=== PATIENT | female | born 1980 | race African-American/Black ===

== ENCOUNTER 2018-02-23 12:24 | Emergency (ER) | payer BC, OTHER ==
[2018-02-23 12:32] VITALS: BP 114/80; PULSE 75; TEMP 97.9; BMI 35.4
[2018-02-23] MEDS ORDERED: LACTATED RINGERS SOLUTION 1,000 ML IV STA (13:56)
[2018-02-23 13:58] LABS: HCG,QUALITATIVE URINE Negative; URINE APPEARANCE CLEAR; URINE BILIRUBIN NEGATIVE (<2.0 mg/dL); URINE COLOR YELLOW; URINE GLUCOSE (UA) NEGATIVE (NEGATIVE); URINE KETONE NEGATIVE (NEGATIVE); URINE LEUK ESTERASE NEGATIVE (NEGATIVE); URINE NITRITE NEGATIVE (NEGATIVE); URINE PROTEIN NEGATIVE (NEGATIVE); URINE UROBILINOGEN NEGATIVE mg/dL (0.2-1.0)
--- NOTE | 2018-02-23 14:13 | PDOC ---
History of Present Illness - General Chief Complaint: Back Pain Stated Complaint: BACK PAIN Time Seen by Provider: 02/23/18 13:39 History Source: Patient Exam Limitations: No Limitations - History of Present Illness Initial Comments: 02/23/18 14:08 Patient is a 38F with history of gallstone pancreatitis s/p cholecystectomy (18 years ago) and here today complaining of two weeks of RUQ abdominal pain that radiates to the back. Patient endorses associated nausea and anorexia. Denies fevers, chills. Patient states that she is followed by Dr Teague (GI, in [place]) and was last scoped in September, which was normal. Patient reports that her symptoms seem to be worse with eating. Denies abnormal vaginal bleeding/discharge. Denies dysuria, last bowel movement yesterday. Past History - Past Medical History Allergies/Adverse Reactions: Allergies Allergy/AdvReac Type Severity Reaction Status Date / Time No Known Allergies Allergy Verified 02/23/18 12:31 Home Medications: Ambulatory Orders NK [No Known Home Medication] 02/23/18 COPD: No - Suicide/Smoking/Psychosocial Hx Smoking History: Never smoked Review of Systems - Review of Systems Able to Perform ROS?: Yes Comments:: 02/23/18 14:13 GENERAL/CONSTITUTIONAL: No fever or chills. No weakness. HEAD, EYES, EARS, NOSE AND THROAT: No change in vision. No sore throat. CARDIOVASCULAR: No chest pain or shortness of breath RESPIRATORY: No cough, wheezing, or hemoptysis. GASTROINTESTINAL: +nausea. No vomiting, diarrhea or constipation. GENITOURINARY: No dysuria, frequency, or change in urination. MUSCULOSKELETAL: No joint or muscle swelling or pain. No neck or back pain. SKIN: No rash NEUROLOGIC: No headache, vertigo, loss of consciousness, or change in strength/ sensation. ENDOCRINE: No increased thirst. No abnormal weight change HEMATOLOGIC/LYMPHATIC: No anemia, easy bleeding, or history of blood clots. ALLERGIC/IMMUNOLOGIC: No hives or skin allergy. *Physical Exam - Vital Signs Last Vital Signs Temp Pulse Resp BP Pulse Ox 97.9 F 75 18 114/80 99 02/23/18 12:25 02/23/18 12:25 02/23/18 12:25 02/23/18 12:25 02/23/18 12:25 - Physical Exam Comments: 02/23/18 14:14 GENERAL: Awake, alert, and fully oriented, in no acute distress HEAD: No signs of trauma, normocephalic, atraumatic EYES: PERRLA, EOMI, sclera anicteric, conjunctiva clear ENT: Auricles normal inspection, hearing grossly normal, nares patent, oropharynx clear without exudates. Moist mucosa NECK: Normal ROM, supple, no lymphadenopathy, JVD, or masses LUNGS: No distress, speaks full sentences, clear to auscultation bilaterally HEART: Regular rate and rhythm, normal S1 and S2, no murmurs, rubs or gallops, peripheral pulses normal and equal bilaterally. ABDOMEN: Soft, +RUQ tendreness, no CVA tenderness, normoactive bowel sounds. No guarding, no rebound. No masses EXTREMITIES: Normal inspection, Normal range of motion, no edema. No clubbing or cyanosis. NEUROLOGICAL: Cranial nerves II through XII grossly intact. Normal speech, normal gait, no focal sensorimotor deficits SKIN: Warm, Dry, normal turgor, no rashes or lesions noted. ED Treatment Course - LABORATORY CBC & Chemistry Diagram: 02/23/18 14:12 02/23/18 14:12 - ADDITIONAL ORDERS Additional order review: Laboratory Results 02/23/18 13:43 Urine Color Yellow Urine Appearance Clear Urine pH 5.0 Ur Specific [place] 1.019 Urine Protein Negative Urine Glucose (UA) Negative Urine Ketones Negative Urine Blood Negative Urine Nitrite Negative Urine Bilirubin Negative Urine Urobilinogen Negative Ur Leukocyte Esterase Negative Urine HCG, Qual Negative - RADIOLOGY Radiology Studies Ordered: Category Date Time Status ABDOMEN & PELVIS CT WITH CONTR [CT] Stat CT Scan 02/23/18 14:03 Ordered Medical Decision Making - Medical Decision Making 02/23/18 14:15 Patient is 38F with history of and gallstone pancreatitis s/p cholecystectomy here today with RUQ pain. Vital signs normal and stable. PE shows RUQ tenderness. DDx includes, but is not limited to: gastritis, pancreatitis, pyelonephritis, stone in bile duct, appendicitis. Will evaluate with cbc, cmp, lipase, ua, upreg, ct abd/pelvis. Will treat with fluids, patient denies needing pain/nausea medication at this time. UA neg, urine preg normal. 02/23/18 19:40 CBC normal. CMP normal. Lipase negative. CT shows no acute findings, does show uterine fibroids. Will discharge patient with GI follow up. Patient still is not requiring pain medication. Ambulating and taking PO without difficulty. *DC/Admit/Observation/Transfer Diagnosis at time of Disposition: Abdominal pain - Discharge Dispostion Disposition: HOME Condition at time of disposition: Good Decision to Admit order: No - Referrals - Patient Instructions Printed Discharge Instructions: DI for Abdominal Pain-Adult Additional Instructions: Please follow up with your GI doctor. Please return if you have any new, worsening or concerning symptoms, especially fever, vomiting and worsening pain. - Post Discharge Activity
[2018-02-23 14:34] LABS: BASO % 0.7 % (0-2.0); HEMATOCRIT 37.1 % (32.4-45.2); LYMPH % 24.9 % (8-40); MCH 22.8 pg (25.7-33.7); MCHC 32.4 g/dl (32.0-36.0); MEAN CELL VOLUME 70.3 fl (80-96); MEAN PLT VOLUME 7.5 fl (7.5-11.1); NEUT % 65.4 % (42.8-82.8); PLATELET COUNT 276 K/MM3 (134-434); RBC 5.28 M/mm3 (3.60-5.2); WHITE BLOOD COUNT 9.8 K/mm3 (4.0-10.0)
[2018-02-23 15:07] LABS: ALK PHOS 61 U/L (45-117); ANION GAP 6 MMOL/L (8-16); BILIRUBIN,TOTAL 0.5 mg/dL (0.2-1); BLOOD UREA NITROGEN 8 mg/dL (7-18); CALCIUM 8.9 mg/dL (8.5-10.1); CHLORIDE 108 mmol/L (98-107); CO2 27 mmol/L (21-32); CREATININE 0.8 mg/dL (0.55-1.3); GLUCOSE,RANDOM 82 mg/dL (74-106); LIPASE 200 U/L (73-393); POTASSIUM 3.9 mmol/L (3.5-5.1); SGOT/AST 12 U/L (15-37); SGPT/ALT 16 U/L (13-61); SODIUM 141 mmol/L (136-145); TOT PROT 7.6 g/dl (6.4-8.2)
--- NOTE | 2018-02-23 16:26 | PDOC ---
Attending Attestation - Resident Resident Name: Yakov Martinez - ED Attending Attestation I have performed the following: I have examined & evaluated the patient, The case was reviewed & discussed with the resident, I agree w/resident's findings & plan, Exceptions are as noted - HPI HPI: 02/23/18 16:24 38 yo F wit h/oprior cholecystectomy here today c/o ruq pain. it started 2 weeks ago. describes nausea, anorexia no vomting. no f/c no change to urine, no dysuria no hematuria. was seen today at urgent care, sent for imaging. no cough no sob no cp. no other complaints. - Physicial Exam PE: 02/23/18 16:25 awake alert lungs clear bilaterally heart rrr no mrg. abd soft ruq ttp. nd. ext wwp no edema. no calf tenderness. skin warm and dry alert oriented x 3 - Medical Decision Making 02/23/18 16:26 differential : retrocecal appendicitis, , related pain, gastritis, pyelonephritis. uti, plan ua ucg ct a/p labs. reassess. pepcid and maalox.
== END 2018-02-23 20:02 | disposition home or self-care (01) ==
LOC: JER 12:24
PROC: 3E0337Z Introduction of Electrolytic and Water Balance Substance into Peripheral Vein, Percutaneous Approach (ICD-10-PCS; principal; 2018-02-23)
DX: R10.9 Unspecified abdominal pain (principal); Z87.19 Personal history of other diseases of the digestive system
CPT/HCPCS: 36415; 74177-TC; 80053; 81003; 83690; 84703; 85025; 99283-25

== ENCOUNTER 2018-03-01 04:46 | Emergency (ER) | payer BC ==
[2018-03-01 05:04] VITALS: TEMP 99.5; BMI 35.4
--- NOTE | 2018-03-01 05:33 | PDOC ---
History of Present Illness <Lizett Leonardo - Last Filed: 03/01/18 05:39> - History of Present Illness Initial Comments: 38yo F with pancreatitis presenting with chest pain. The pain started last night , rated 5-6/10, and woke her up from bed. Pain has been constant since that time with no exacerbating or relieving factors. Described as a tightness and cramping sensation that radiates up her neck and to her left shoulder. She has not taken anything at home for her pain. For the past three or four days, patient endorses dyspnea on exertion, weakness, and nausea, but no vomiting. Was last seen in this ED last week for abdominal pain. Denies history of previous AR, HTN, or DM. No family history of CAD/AR. No fever, chills, recent weight changes, or abdominal pain. <Stefanie Padilla - Last Filed: 03/01/18 07:36> - General Chief Complaint: Chest Pain Stated Complaint: CHEST TIGHTNESS/PRESSURE Time Seen by Provider: 03/01/18 05:07 Past History <Lizett Leonardo - Last Filed: 03/01/18 05:39> - Past Medical History COPD: No - Suicide/Smoking/Psychosocial Hx Smoking History: Never smoked Have you smoked in the past 12 months: No Information on smoking cessation initiated: No Hx Alcohol Use: No Drug/Substance Use Hx: No <Stefanie Padilla - Last Filed: 03/01/18 07:36> - Past Medical History Allergies/Adverse Reactions: Allergies Allergy/AdvReac Type Severity Reaction Status Date / Time No Known Allergies Allergy Verified 03/01/18 04:53 Home Medications: Ambulatory Orders NK [No Known Home Medication] 02/23/18 Review of Systems - Review of Systems Comments:: Constitutional: no fever, no chills Cardiovascular: +chest pain, +palpitations Respiratory: no cough, no shortness of breath Gastrointestinal: no abdominal pain, no nausea, no vomiting, no diarrhea, no constipation Musculoskeletal: no myalgia, no arthralgia Skin: no rash, no itching Neurologic: no headache, no dizziness <Stefanie Padilla - Last Filed: 03/01/18 07:36> *Physical Exam - Vital Signs Last Vital Signs Temp Pulse Resp BP Pulse Ox 99.5 F 77 19 139/94 100 03/01/18 04:50 03/01/18 04:50 03/01/18 04:50 03/01/18 04:50 03/01/18 04:50 <Lizett Leonardo - Last Filed: 03/01/18 05:39> - Vital Signs Last Vital Signs Temp Pulse Resp BP Pulse Ox 99.5 F 77 19 139/94 100 03/01/18 04:50 03/01/18 04:50 03/01/18 04:50 03/01/18 04:50 03/01/18 04:50 - Physical Exam Comments: General: Awake, alert, and fully oriented, in no acute distress Head: no signs of trauma Eyes: EOMI, sclera anicteric ENT: Moist mucus membranes, Neck: Normal ROM, supple Lungs: Lungs clear, Normal breath sounds Cardio: Regular rhythm, S1 and S2 present Abdomen: Soft, nontender. No guarding, no rebound, no masses Extremities: Normal range of motion, Distal pulses present SKIN: Warm, Dry, normal turgor Neurologic: Cranial nerves II through XII grossly intact. Normal speech <Stefanie Padilla - Last Filed: 03/01/18 07:36> ED Treatment Course - LABORATORY CBC & Chemistry Diagram: 03/01/18 05:40 03/01/18 05:40 - RADIOLOGY Radiology Studies Ordered: Category Date Time Status CHEST PA & LAT [RAD] Stat Radiology 03/01/18 05:28 Ordered <Stefanie Padilla - Last Filed: 03/01/18 07:36> Medical Decision Making - Medical Decision Making 38yo F with pancreatitis presenting with chest pain. -Labs: Tpn negative, no leukocytosis or anemia -HEART score of 2 (moderately suspicious history and 1 risk factor- obesity) -IV fluids, pepcid, maalox Patient signed out to Dr. Gramajo 03/01/18 06:43 <Stefanie Padilla - Last Filed: 03/01/18 07:36> *DC/Admit/Observation/Transfer <Lizett Leonardo - Last Filed: 03/01/18 05:39> <Stefanie Padilla - Last Filed: 03/01/18 07:36> Diagnosis at time of Disposition: Chest pain Qualifiers: Chest pain type: unspecified Qualified Code(s): R07.9 - Chest pain, unspecified - Discharge Dispostion Condition at time of disposition: Fair - Referrals Referrals: Zach Flower MD [Staff Physician] - - Patient Instructions Additional Instructions: We are referring you to a primary care physician, Dr. Flower, at the [facility].
[2018-03-01 06:07] LABS: BASO % 0.2 % (0-2.0); EOS % 1.8 % (0-4.5); HEMATOCRIT 36.8 % (32.4-45.2); HEMOGLOBIN 11.8 GM/dL (10.7-15.3); LYMPH % 26.6 % (8-40); MCH 22.4 pg (25.7-33.7); MEAN CELL VOLUME 70.2 fl (80-96); MEAN PLT VOLUME 7.9 fl (7.5-11.1); MONO % 5.9 % (3.8-10.2); NEUT % 65.5 % (42.8-82.8); PLATELET COUNT 313 K/MM3 (134-434); RBC 5.24 M/mm3 (3.60-5.2); WHITE BLOOD COUNT 8.9 K/mm3 (4.0-10.0)
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
[2018-03-01 06:25] LABS: ALBUMIN 4.1 g/dl (3.4-5.0); ALK PHOS 62 U/L (45-117); ANION GAP 10 MMOL/L (8-16); BILIRUBIN,TOTAL 0.3 mg/dL (0.2-1); BLOOD UREA NITROGEN 9 mg/dL (7-18); CALCIUM 9.2 mg/dL (8.5-10.1); CHLORIDE 109 mmol/L (98-107); CO2 25 mmol/L (21-32); CREATININE 0.7 mg/dL (0.55-1.3); GLUCOSE,RANDOM 87 mg/dL (74-106); POTASSIUM 3.9 mmol/L (3.5-5.1); SGOT/AST 7 U/L (15-37); SGPT/ALT 16 U/L (13-61); SODIUM 144 mmol/L (136-145); TOT PROT 7.5 g/dl (6.4-8.2)
[2018-03-01] MEDS ORDERED: MAG HYDROX/AL HYDROX/SIMETH 30 ML UNIT-DOSE CUP PO ONE (06:40)
[2018-03-01] MEDS ORDERED: SODIUM CHLORIDE 1,000 ML IV STA (06:41)
[2018-03-01] MEDS ORDERED: MAG HYDROX/AL HYDROX/SIMETH 30 ML UNIT-DOSE CUP ONE (06:44)
[2018-03-01] MEDS ORDERED: FAMOTIDINE 20 MG/50 ML IVPB 20 MG/50 ML MG IVPB ONE ×2 (06:44→06:51)
--- NOTE | 2018-03-01 07:52 | PDOC ---
*Physical Exam - Vital Signs Last Vital Signs Temp Pulse Resp BP Pulse Ox 99.5 F 77 19 139/94 100 03/01/18 04:50 03/01/18 04:50 03/01/18 04:50 03/01/18 04:50 03/01/18 04:50 <Cuauhtemoc Gramajo - Last Filed: 03/01/18 08:20> - Vital Signs Last Vital Signs Temp Pulse Resp BP Pulse Ox 99.5 F 82 18 129/87 97 03/01/18 04:50 03/01/18 08:19 03/01/18 08:19 03/01/18 08:19 03/01/18 08:19 <WalkerTheresa - Last Filed: 03/01/18 08:22> ED Treatment Course - LABORATORY CBC & Chemistry Diagram: 03/01/18 05:40 03/01/18 05:40 - ADDITIONAL ORDERS Additional order review: Laboratory Results 03/01/18 05:40 Sodium 144 Potassium 3.9 Chloride 109 H Carbon Dioxide 25 Anion Gap 10 BUN 9 Creatinine 0.7 Creat Clearance w eGFR > 60 Random Glucose 87 Calcium 9.2 Total Bilirubin 0.3 AST 7 L ALT 16 Alkaline Phosphatase 62 Creatine Kinase 57 Troponin I < 0.02 Total Protein 7.5 Albumin 4.1 03/01/18 05:40 RBC 5.24 H MCV 70.2 L MCHC 32.0 RDW 15.0 MPV 7.9 Neutrophils % 65.5 Lymphocytes % 26.6 Monocytes % 5.9 Eosinophils % 1.8 Basophils % 0.2 - Medications Given in the ED: ED Medications Discontinued Medications Generic Name Dose Route Start Last Admin Trade Name Bob PRN Reason Stop Dose Admin Al Hydroxide/Mg Hydroxide 30 ml 03/01/18 06:40 03/01/18 06:49 Mylanta Oral Suspension - PO 03/01/18 06:41 30 ml ONCE ONE Administration Sodium Chloride 1,000 mls @ 1,000 mls/hr 03/01/18 06:41 03/01/18 06:49 Normal Saline - IV 03/01/18 07:40 1,000 mls/hr ASDIR STA Administration Famotidine/Sodium Chloride 20 mg in 50 mls @ 100 mls/hr 03/01/18 06:44 06:54 Pepcid 20 Mg Premixed Ivpb - IVPB 03/01/18 07:13 100 mls/hr ONCE ONE Administration <Cuauhtemoc Gramajo - Last Filed: 03/01/18 08:20> - LABORATORY CBC & Chemistry Diagram: 03/01/18 05:40 03/01/18 05:40 - ADDITIONAL ORDERS Additional order review: Laboratory Results 03/01/18 05:40 Sodium 144 Potassium 3.9 Chloride 109 H Carbon Dioxide 25 Anion Gap 10 BUN 9 Creatinine 0.7 Creat Clearance w eGFR > 60 Random Glucose 87 Calcium 9.2 Total Bilirubin 0.3 AST 7 L ALT 16 Alkaline Phosphatase 62 Creatine Kinase 57 Troponin I < 0.02 Total Protein 7.5 Albumin 4.1 03/01/18 05:40 RBC 5.24 H MCV 70.2 L MCHC 32.0 RDW 15.0 MPV 7.9 Neutrophils % 65.5 Lymphocytes % 26.6 Monocytes % 5.9 Eosinophils % 1.8 Basophils % 0.2 - Medications Given in the ED: ED Medications Discontinued Medications Generic Name Dose Route Start Last Admin Trade Name Bob PRN Reason Stop Dose Admin Al Hydroxide/Mg Hydroxide 30 ml 03/01/18 06:40 03/01/18 06:49 Mylanta Oral Suspension - PO 03/01/18 06:41 30 ml ONCE ONE Administration Sodium Chloride 1,000 mls @ 1,000 mls/hr 03/01/18 06:41 03/01/18 06:49 Normal Saline - IV 03/01/18 07:40 1,000 mls/hr ASDIR STA Administration Famotidine/Sodium Chloride 20 mg in 50 mls @ 100 mls/hr 03/01/18 06:44 06:54 Pepcid 20 Mg Premixed Ivpb - IVPB 03/01/18 07:13 100 mls/hr ONCE ONE Administration <Theresa Walker - Last Filed: 03/01/18 08:22> Medical Decision Making - Medical Decision Making 03/01/18 07:46 Pt feels better at this time after pepcid and maalox. Awaiting CXR at this time. 03/01/18 08:11 CXR with no signs of acute pulmonary process. Pt still feels well. Will discharge home. Pt to follow up at [facility] clinic for primary care and referral given. Pt instructed to come back to ER if she has worsening of current symptoms or new concerning symptoms. <Cuauhtemoc Gramajo - Last Filed: 03/01/18 08:20> - Medical Decision Making agree with outline s/o from Dr Leonardo overnight pending reeval VS remain stable, wnl, normotensive.well appearing. given GI cocktail labs and lytes wnl. trop neg, EKG nonischemic DC in stable condition, PMD followup, return precautions given. pt made aware of impression and plan. 03/01/18 08:21 <Theresa Walker - Last Filed: 03/01/18 08:22> *DC/Admit/Observation/Transfer <Duke Gramajotik - Last Filed: 03/01/18 08:20> <Theresa Walker - Last Filed: 03/01/18 08:22> Diagnosis at time of Disposition: Chest pain Qualifiers: Chest pain type: unspecified Qualified Code(s): R07.9 - Chest pain, unspecified - Discharge Dispostion Disposition: HOME Condition at time of disposition: Fair - Referrals Referrals: Zach Flower MD [Staff Physician] - - Patient Instructions Printed Discharge Instructions: DI for Atypical Chest Pain, DI for Chest Pain Additional Instructions: We are referring you to a primary care physician, Dr. Flower, at the [facility]. - Post Discharge Activity Forms/Work/School Notes: Back to Work
[2018-03-01 08:20] VITALS: BP 129/87; PULSE 82
--- NOTE | 2018-03-01 23:15 | EKG ---
Test Reason : Blood Pressure : / mmHG Vent. Rate : 066 BPM Atrial Rate : 066 BPM P-R Int : 176 ms QRS Dur : 084 ms QT Int : 404 ms P-R-T Axes : 061 055 058 degrees QTc Int : 423 ms NORMAL SINUS RHYTHM SEPTAL INFARCT (CITED ON OR BEFORE 18-MAY-2009) ABNORMAL ECG WHEN COMPARED WITH ECG OF 18-MAY-2009 15:26, VENT. RATE HAS DECREASED BY 43 BPM Confirmed by JOSE ENRIQUE BENNETT MD ([id number]) on 03/01/2018 11:14:33 PM Referred By: Confirmed By:JOSE ENRIQUE BENNETT MD
== END 2018-03-01 08:29 | disposition home or self-care (01) ==
LOC: JER 04:46
PROC: 3E0337Z Introduction of Electrolytic and Water Balance Substance into Peripheral Vein, Percutaneous Approach (ICD-10-PCS; principal; 2018-03-01)
PROC: 3E033GC Introduction of Other Therapeutic Substance into Peripheral Vein, Percutaneous Approach (ICD-10-PCS; 2018-03-01)
DX: R07.9 Chest pain, unspecified (principal)
CPT/HCPCS: 36415; 71046-TC-FY; 80053; 82550; 84484; 84703; 85025; 93005; 93010; 99283-25; J7030

== ENCOUNTER 2019-01-14 23:09 | Emergency (ER) | payer BC ==
[2019-01-14 23:56] VITALS: BP 107/73; PULSE 86; TEMP 97.5; BMI 35.5
--- NOTE | 2019-01-15 01:58 | PDOC ---
Attending Attestation - Resident Resident Name: Mariah Corrales - ED Attending Attestation I have performed the following: I have examined & evaluated the patient, The case was reviewed & discussed with the resident, I agree w/resident's findings & plan - HPI HPI: 01/15/19 06:30 38-year-old female with palpitations and dyspnea intermittently since Saturday. She had some pinching in the left arm which prompted her to come to the emergency department. - Physicial Exam PE: 01/15/19 06:30 agree with resident exam - Medical Decision Making 01/15/19 06:31 38-year-old female with intermittent palpitations and dyspnea Labs were within normal limits Patient's PERC score is negative CXR neg Patient asymptomatic, she will be discharged home with recommended outpatient cardiology follow-up
[2019-01-15] MEDS ORDERED: ACETAMINOPHEN 500 MG TABLET (FP) PO ONE (02:10)
--- NOTE | 2019-01-15 02:15 | PDOC ---
History of Present Illness - General Chief Complaint: Irregular Heart Beat Stated Complaint: PALPITATIONS Time Seen by Provider: 01/15/19 01:47 History Source: Patient Exam Limitations: No Limitations - History of Present Illness Initial Comments: 01/15/19 06:14 38yo F with PMH of pancreatitis presenting to ED with complaints of palpitations with SOB since Saturday. Pt states that today she started to experience soreness in the L arm and pinching like sensation in the L side of the chest which prompted her to come to the ED. Patient says she was talking on the phone with her sister when the palpitations first started. She denies the conversation causing anxiety or excitement. The palpitations are intermittent and is associated with SOB. She is also endorsing epigastric abdominal discomfort which is sharp and "pinches" and radiates to the back which is not a new sensation for her. Denies n/v/d, fevers, chills, recent travel, leg swelling , calf pain, recent surgery, cough. PMD: PMH: see hpi PSH: , cholecystecomy Meds: none Allergies: nkda Past History - Past Medical History Allergies/Adverse Reactions: Allergies Allergy/AdvReac Type Severity Reaction Status Date / Time No Known Allergies Allergy Verified 03/01/18 04:53 Home Medications: Ambulatory Orders NK [No Known Home Medication] 02/23/18 COPD: No - Immunization History Immunization Up to Date: Yes - Suicide/Smoking/Psychosocial Hx Smoking History: Never smoked Have you smoked in the past 12 months: No Information on smoking cessation initiated: No Hx Alcohol Use: No Drug/Substance Use Hx: No Review of Systems - Review of Systems Constitutional: No: Symptoms Reported HEENTM: No: Symptoms Reported Respiratory: Yes: See HPI Cardiac (ROS): Yes: See HPI ABD/GI: Yes: See HPI : No: Symptoms Reported Musculoskeletal: Yes: See HPI Integumentary: No: Symptoms Reported Neurological: No: Symptoms reported *Physical Exam - Vital Signs Last Vital Signs Temp Pulse Resp BP Pulse Ox 97.5 F L 86 20 107/73 100 01/14/19 23:54 01/14/19 23:54 01/14/19 23:54 01/14/19 23:54 01/14/19 23:54 - Physical Exam General Appearance: Yes: Nourished, Appropriately Dressed. No: Apparent Distress HEENT: positive: EOMI, KURTIS, Normal ENT Inspection Neck: positive: Trachea midline, Supple Respiratory/Chest: positive: Lungs Clear, Normal Breath Sounds. negative: Crackles, Rales, Rhonchi, Stridor, Wheezing Cardiovascular: positive: Regular Rhythm, Regular Rate, S1, S2. negative: Edema , JVD, Murmur Vascular Pulses: Dorsalis-Pedis (R): 2+, Doralis-Pedis (L): 2+ Gastrointestinal/Abdominal: positive: Normal Bowel Sounds, Soft. negative: Tender, Distended, Guarding, Rebound, Tenderness Musculoskeletal: negative: CVA Tenderness Extremity: positive: Normal Capillary Refill. negative: Swelling, Calf Tenderness, Erythema Integumentary: positive: Normal Color, Dry, Warm Neurologic: positive: educational therapist II-XII NML intact, Fully Oriented, Alert, Normal Mood/ Affect, Normal Response, Motor Strength 10/05 ED Treatment Course - LABORATORY CBC & Chemistry Diagram: 01/15/19 04:00 01/15/19 04:00 Medical Decision Making - Medical Decision Making 01/15/19 06:41 38yo F with PMH of pancreatitis presenting to ED with complaints of palpitations with SOB since Saturday. Pt states that today she started to experience soreness in the L arm and pinching like sensation in the L side of the chest which prompted her to come to the ED. Patient says she was talking on the phone with her sister when the palpitations first started. She denies the conversation causing anxiety or excitement. The palpitations are intermittent and is associated with SOB. She is also endorsing epigastric abdominal discomfort which is sharp and "pinches" and radiates to the back which is not a new sensation for her. Denies n/v/d, fevers, chills, recent travel, leg swelling , calf pain, recent surgery, cough. Vitals: wnl PE: benign, no chest wall tenderness. ddx includes but not limited to gerd, pancreatitis, pe, acs, pna, ptx PERC negative. will give tylenol, zantac, maalox. labs, cxr ekg pt is asymptomatic at this time. will observe. 01/15/19 06:42 ekg: nsr at 68bpm, pr 184, qtc 418. no alina or depressions. no s1, q3,t3. cxr: no acute pathology. trop negative. stable vitals. safe for dc home. will give cardiology f/u. given return precautions. *DC/Admit/Observation/Transfer Diagnosis at time of Disposition: Palpitations - Discharge Dispostion Disposition: HOME Condition at time of disposition: Good Decision to Admit order: No - Referrals Referrals: Amy Osuna MD [Staff Physician] - [facility] [place] [Provider Group] - Patient Instructions Printed Discharge Instructions: DI for Palpitations Additional Instructions: You were seen in the emergency room today for palpitations. Your blood work, ekg and xray are all normal. I do not know the exact cause of your palpitations but everything appears normal. I recommend making an appointment with a bone puller regarding the palpitations. Information is provided below. I also recommend making an appointment with a primary care doctor. Please come back to the emergency room if you have continuous palpitations, have shortness of breath, have chest pain, you pass out or if any new concerning symptom develops. Thank you - Post Discharge Activity
[2019-01-15] MEDS ORDERED: MAG HYDROX/AL HYDROX/SIMETH 30 ML UNIT-DOSE CUP PO ONE (02:16)
[2019-01-15] MEDS ORDERED: RANITIDINE HCL 150 MG TABLET (FP) PO ONE (02:16)
[2019-01-15] MEDS ORDERED: RANITIDINE HCL 150 MG TABLET (FP) ONE (03:25)
[2019-01-15] MEDS ORDERED: ACETAMINOPHEN 325 MG TABLET (FP) ONE (03:25)
[2019-01-15] MEDS ORDERED: MAG HYDROX/AL HYDROX/SIMETH 30 ML UNIT-DOSE CUP ONE (03:26)
[2019-01-15 05:29] LABS: BASO % 0.3 % (0-2.0); EOS % 1.5 % (0-4.5); HEMATOCRIT 34.9 % (32.4-45.2); HEMOGLOBIN 11.3 GM/dL (10.7-15.3); LYMPH % 34.6 % (8-40); MCH 22.9 pg (25.7-33.7); MCHC 32.4 g/dl (32.0-36.0); MEAN CELL VOLUME 70.8 fl (80-96); MEAN PLT VOLUME 7.4 fl (7.5-11.1); MONO % 6.2 % (3.8-10.2); NEUT % 57.4 % (42.8-82.8); PLATELET COUNT 303 K/MM3 (134-434); RBC 4.92 M/mm3 (3.60-5.2); RDW 15.3 % (11.6-15.6); WHITE BLOOD COUNT 10.2 K/mm3 (4.0-10.0)
[2019-01-15 05:39] LABS: ALBUMIN 3.8 g/dl (3.4-5.0); ANION GAP 9 MMOL/L (8-16); BLOOD UREA NITROGEN 12.2 mg/dL (7-18); CHLORIDE 109 mmol/L (98-107); CO2 27 mmol/L (21-32); GLUCOSE,RANDOM 99 mg/dL (74-106); SODIUM 145 mmol/L (136-145)
[2019-01-15 05:42] LABS: BILIRUBIN,TOTAL 0.2 mg/dL (0.2-1); CREATININE 0.8 mg/dL (0.55-1.3); LIPASE 306 U/L (73-393); SGOT/AST 7 U/L (15-37); SGPT/ALT 15 U/L (13-61); TOT PROT 6.7 g/dl (6.4-8.2)
[2019-01-15 05:51] LABS: ALK PHOS 63 U/L (45-117)
--- NOTE | 2019-01-15 10:55 | EKG ---
Test Reason : Blood Pressure : / mmHG Vent. Rate : 068 BPM Atrial Rate : 068 BPM P-R Int : 184 ms QRS Dur : 076 ms QT Int : 394 ms P-R-T Axes : 068 031 035 degrees QTc Int : 418 ms NORMAL SINUS RHYTHM SEPTAL INFARCT (CITED ON OR BEFORE 18-MAY-2009) ABNORMAL ECG Confirmed by LEONELA FARNSWORTH MD ([id number]) on 01/15/2019 10:55:27 AM Referred By: Chase HERNANDEZ Confirmed By:LEONELA FARNSWORTH MD
== END 2019-01-15 07:18 | disposition home or self-care (01) ==
LOC: JER 23:09
DX: R00.2 Palpitations (principal)
CPT/HCPCS: 36415; 71046-TC-FY; 80053; 83690; 84443; 84484; 84703; 85025; 93005; 93010; 99282-25

== ENCOUNTER 2021-03-11 17:34 | Emergency (ER) | payer SELFPAY ==
[2021-03-11 17:55] VITALS: BP 157/91; PULSE 85; TEMP 98.4; BMI 39.4
[2021-03-11] MEDS ORDERED: ACETAMINOPHEN 1000 MG/100 ML VIAL (NON FORMULARY) IVPB ONE (19:53)
[2021-03-11] MEDS ORDERED: SODIUM CHLORIDE 0.9% 500 ML INFUS.BAG IV ONE (19:53)
[2021-03-11] MEDS ORDERED: METOCLOPRAMIDE HCL INJECTION 10 MG/2 ML VIAL IVPUSH ONE (19:59)
[2021-03-11] MEDS ORDERED: MAG HYDROX/AL HYDROX/SIMETH 30 ML UNIT-DOSE CUP PO ONE (20:00)
[2021-03-11] MEDS ORDERED: FAMOTIDINE 20 MG/50 ML IVPB 20 MG/50 ML MG IVPB ONE ×2 (20:00→20:28)
[2021-03-11] MEDS ORDERED: METOCLOPRAMIDE HCL 10 MG TABLET (FP) PO ONE (20:27)
[2021-03-11] MEDS ORDERED: ACETAMINOPHEN INJECTION 100 ML IVPB ONE (20:27)
[2021-03-11] MEDS ORDERED: MAG HYDROX/AL HYDROX/SIMETH 30 ML UNIT-DOSE CUP ONE (20:28)
[2021-03-11] MEDS ORDERED: METOCLOPRAMIDE HCL INJECTION 10 MG/2 ML VIAL ONE (20:39)
[2021-03-11 20:41] LABS: BASO % 0.8 % (0-2.0); EOS % 1.2 % (0-4.5); HEMOGLOBIN 11.3 GM/dL (10.7-15.3); LYMPH % 26.6 % (8-40); MCH 22.7 pg (25.7-33.7); MCHC 32.3 g/dl (32.0-36.0); MEAN CELL VOLUME 70.1 fl (80-96); MEAN PLT VOLUME 7.2 fl (7.5-11.1); NEUT % 64.4 % (42.8-82.8); PLATELET COUNT 299 10^3/uL (134-434); RBC 4.99 M/mm3 (3.60-5.2); RDW 15.8 % (11.6-15.6); WHITE BLOOD COUNT 13.9 K/mm3 (4.0-10.0)
[2021-03-11 21:02] LABS: CHLORIDE 106 mmol/L (98-107); SODIUM 140 mmol/L (136-145)
[2021-03-11 21:05] LABS: ALBUMIN 3.7 g/dl (3.4-5.0); ANION GAP 8 MMOL/L (8-16); CALCIUM 8.7 mg/dL (8.5-10.1); CO2 25 mmol/L (21-32); LIPASE 200 U/L (73-393)
[2021-03-11 21:08] LABS: CREATININE 0.7 mg/dL (0.55-1.3); GLUCOSE,RANDOM 106 mg/dL (74-106); SGOT/AST 10 U/L (15-37); SGPT/ALT 17 U/L (13-61)
[2021-03-11 21:10] LABS: BILIRUBIN,TOTAL 0.2 mg/dL (0.2-1); TOT PROT 7.2 g/dl (6.4-8.2)
[2021-03-11 21:11] LABS: ALK PHOS 64 U/L (45-117)
== END 2021-03-12 00:42 | disposition home or self-care (01) ==
LOC: JER 17:34
PROC: 3E0333Z Introduction of Anti-inflammatory into Peripheral Vein, Percutaneous Approach (ICD-10-PCS; principal; 2021-03-11)
PROC: 3E033GC Introduction of Other Therapeutic Substance into Peripheral Vein, Percutaneous Approach (ICD-10-PCS; 2021-03-11)
PROC: 3E033GC Introduction of Other Therapeutic Substance into Peripheral Vein, Percutaneous Approach (ICD-10-PCS; 2021-03-11)
DX: G43.909 Migraine, unspecified, not intractable, without status migrainosus (principal); K21.9 Gastro-esophageal reflux disease without esophagitis; I10 Essential (primary) hypertension
CPT/HCPCS: 36415; 70450-TC; 70496-TC; 80053; 82550; 83690; 84484; 85025; 93005; 93010; 99285-25; J0131; Q9967

== ENCOUNTER 2022-01-07 23:24 | Emergency (ER) | payer BC ==
[2022-01-07 23:34] VITALS: TEMP 98.3; BMI 39.8
[2022-01-08] MEDS ORDERED: ACETAMINOPHEN 325 MG TABLET (FP) PO ONE (00:21)
[2022-01-08] MEDS ORDERED: METOCLOPRAMIDE HCL 10 MG TABLET (FP) PO ONE ×2 (00:21→00:41)
[2022-01-08] MEDS ORDERED: IBUPROFEN 600 MG TABLET (FP) PO ONE ×2 (00:30→00:41)
[2022-01-08] MEDS ORDERED: ACETAMINOPHEN 325 MG TABLET (FP) ONE (00:41)
[2022-01-08 00:51] LABS: PH,URINE 7.5 (5.0-8.0); URINE APPEARANCE CLEAR; URINE BILIRUBIN NEGATIVE (NEGATIVE); URINE COLOR YELLOW; URINE GLUCOSE (UA) NEGATIVE (NEGATIVE); URINE KETONE NEGATIVE (NEGATIVE); URINE LEUK ESTERASE NEGATIVE (NEGATIVE); URINE NITRITE NEGATIVE (NEGATIVE); URINE PROTEIN NEGATIVE (NEGATIVE)
[2022-01-08 02:54] LABS: BASO % 0.3 % (0-2.0); EOS % 0.8 % (0-4.5); HEMATOCRIT 34.6 % (32.4-45.2); HEMOGLOBIN 11.3 GM/dL (10.7-15.3); LYMPH % 15.8 % (8-40); MCH 22.7 pg (25.7-33.7); MCHC 32.7 g/dl (32.0-36.0); MEAN CELL VOLUME 69.4 fl (80-96); NEUT % 79.1 % (42.8-82.8); PLATELET COUNT 328 10^3/uL (134-434); RBC 4.98 M/mm3 (3.60-5.2); RDW 16.1 % (11.6-15.6); WHITE BLOOD COUNT 11.5 K/mm3 (4.0-10.0)
[2022-01-08 03:08] LABS: INR 0.96 (0.83-1.09)
[2022-01-08 03:11] LABS: ACTIVATED PTT 31.5 SECONDS (25.2-36.5)
[2022-01-08 03:17] LABS: ALBUMIN 3.8 g/dl (3.4-5.0); BLOOD UREA NITROGEN 10.4 mg/dL (7-18)
[2022-01-08 03:19] LABS: CREATININE 0.7 mg/dL (0.55-1.3)
[2022-01-08 03:33] LABS: BILIRUBIN,TOTAL 0.2 mg/dL (0.2-1)
[2022-01-08 03:59] VITALS: BP 134/86; PULSE 84; RESP 18
== END 2022-01-08 04:00 | disposition home or self-care (01) ==
LOC: JER 23:24
DX: R51.9 Headache, unspecified (principal); I10 Essential (primary) hypertension
CPT/HCPCS: 0241U-QW; 36415; 80053; 81003; 83690; 84703; 85025; 85610; 85730; 87086; 87186; 93005; 93010; 99284-25